=== PATIENT | male | born 1980 | race Hispanic/Latino ===

== ENCOUNTER 2019-09-06 07:53 | Emergency (ER) | payer SELFPAY ==
[2019-09-06] MEDS ORDERED: OCTYL 2-CYANOACRYLATE 1 EACH TP ONE ×2 (08:03→08:08)
== END 2019-09-06 08:20 | disposition home or self-care (01) ==
LOC: EDH 07:53
DX: S61.411A Laceration without foreign body of right hand, initial encounter (principal); Z87.891 Personal history of nicotine dependence; W20.8XXA Other cause of strike by thrown, projected or falling object, initial encounter; Y93.89 Activity, other specified; Y92.098 Other place in other non-institutional residence as the place of occurrence of the external cause; Y99.8 Other external cause status
CPT/HCPCS: 12042

== ENCOUNTER 2024-03-24 09:20 | Emergency (ER) | payer OTHER ==
[~2024-03-24] VITALS: Ht 165.1 cm; Wt 95.3 kg
[2024-03-24 09:35] LABS: APPEARANCE,URINE CLEAR (CLEAR); BILIRUBIN,URINE NEGATIVE (NEGATIVE); COLOR,URINE LIGHT-YELLOW (YELLOW); GLUCOSE, URINE (UA) NEGATIVE (NEGATIVE); KETONES,URINE NEGATIVE (NEGATIVE); LEUKOCYTE ESTERASE ,URINE NEGATIVE Leu/uL (NEGATIVE); NITRATE,URINE NEGATIVE (NEGATIVE); OCCULT BLOOD,URINE MODERATE (NEGATIVE); PH,URINE 5.5 (5.0-8.0); PROTEIN,URINE 20 mg/dL (NEGATIVE); UROBILINOGEN,URINE 0.2 mg/dL (0.2-1.0)
[2024-03-24 09:37] LABS: ADD UA MICROSCOPIC YES
[2024-03-24 09:38] LABS: BACTERIA,URINE RARE /HPF (None Seen); MUCUS,URINE RARE LPF (None Seen); SQUAMOUS EPITHELIAL CELL,UR RARE /HPF (0-2)
[2024-03-24 09:46] LABS: MEAN CORPUSCULAR HEMOGLOBIN 31.8 pg (27.0-33.0); MEAN CORPUSCULAR HGB CONC 36.3 g/dL (32.0-36.0); MEAN CORPUSCULAR VOLUME 87.8 fL (79-99); PLATELET COUNT (AUTO) 186 K/uL (130-400); RED CELL DISTRIBUTION WIDTH 12.5 % (11.0-15.5); WHITE BLOOD COUNT (AUTO) 9.1 K/uL (4.8-10.8)
[2024-03-24 10:01] LABS: BILIRUBIN,TOTAL 0.7 mg/dL (0.2-1.0); CREATININE 1.1 mg/dL (0.5-1.3); POTASSIUM 4.4 mmol/L (3.5-5.1); TOTAL PROTEIN, SERUM 7.9 g/dL (6.0-8.3)
[2024-03-24] MEDS: 0.9%NACL 1000ML 1,000 ML IV ONE (10:05)
[2024-03-24] MEDS: KETOROLAC 30MG VIAL (30MG/ML) IVP ONE (10:06)
[2024-03-24] MEDS ORDERED: TAMS-1 PO (12:34)
[2024-03-24] MEDS ORDERED: IBUP-2071 PO (12:34)
[2024-03-24 12:35] VITALS: BP 155/72; PULSE 84; RESP 18; O2SAT 99
== END 2024-03-24 12:43 | disposition home or self-care (01) ==
LOC: EDH 09:20
DX: N20.0 Calculus of kidney (principal)
CPT/HCPCS: 99285; 74176; 96374; 96361; 80053; 83690; 85027; 81001; 36415; J7030; J1885